=== PATIENT | male | born 1960 | race Caucasian/White ===

== ENCOUNTER 2019-01-21 19:08 | Emergency (ER) | payer OTHER ==
[~2019-01-21] VITALS: Ht 154.9 cm; Wt 75.0 kg
[2019-01-21 19:14] VITALS: BP 144/81; PULSE 79; RESP 19; Ht 154.9 cm; Wt 75.0 kg
--- NOTE | 2019-01-21 19:34 | ERD ---
ER Documentation Chief Complaint Chief Complaint bib ra from home for right sided inguinal hernia, HPI 58-year-old Bulgarian speaking gentleman. [employer] used. The patient has a history of right inguinal hernia. Prior stroke with some baseline cognitive deficits. The patient notes approximately 1 hour of right lower quadrant abdominal pain related to hernia that he cannot reduce. The pain is 8 out of 10. It is constant. He denies any nausea or vomiting, no fevers or chills. ROS All systems reviewed and are negative except as per history of present illness. Allergies Allergies: Coded Allergies: No Known Allergy (Unverified , 01/21/19) PMhx/Soc History of Surgery: No Anesthesia Reaction: No Hx Neurological Disorder: Yes (Hx of CVA) Hx Respiratory Disorders: No Hx Cardiac Disorders: Yes ([facility](2009), 7 Cardiac stent placement, HTN, ) Hx Psychiatric Problems: No Hx Miscellaneous Medical Probl: No FmHx Family History: No diabetes Physical Exam Vitals Vital Signs Date Temp Pulse Resp B/P (MAP) Pulse Ox O2 O2 Flow FiO2 Time Delivery Rate 01/21/19 98.8 79 19 144/81 100 19:14 (102) Physical Exam General: Uncomfortable Head: Normocephalic, atraumatic. Eyes: Pupils equally reactive, EOM intact ENT: Moist mucous membranes Neck: Supple, no lymphadenopathy Respiratory: Lungs clear bilaterally, no distress Cardiovascular: RRR, no murmurs, rubs, or gallops Abdominal: Soft, non-tender, non-distended, no peritoneal signs : Large right inguinal hernia, indirect that is firm but with direct pressure reducible. Repeat inspection reveals no persistent hernia. No pain. MSK: No edema, no unilateral swelling, 5/5 strength Neurologic: Alert and oriented, moving all extremities, normal speech, no focal weakness, no cerebellar signs Skin: No rash Psych: Normal mood Procedures/MDM PROCEDURES: Bedside inguinal hernia reduction. Using direct pressure to the inguinal hernia I was able to easily reduce the hernia without complication. The patient tolerated procedure well. Pain completely resolved. Repeat inspection reveals no persistent hernia. MEDICAL DECISION MAKING: Patient with evidence of a right inguinal hernia. Concern for possible incarceration, low concern for string elation. Using direct pressure I was able to reduce the hernia. The patient has no persistent signs or symptoms concerning for incarceration or strength elation. His abdominal exam is benign. No signs of infection at this time. The patient is complete resolution of symptoms and does not warrant CT imaging. Outpatient follow-up with general surgeon is likely necessary. Reduction techniques discussed. Compressive dressing applied CONSULTATION: None DISPOSITION PLAN: The patient does not have an identifiable emergent medical condition that warrants inpatient hospitalization at this time. The patient is deemed safe for discharge with outpatient follow-up. We discussed follow up with the patient's primary care doctor within 24 to 48 hours as needed. We also discussed return to the emergency room for worsening symptoms or worsening condition. Outpatient referral: General surgery Discharge Medications: None required Departure Diagnosis: Primary Impression: Right inguinal hernia Condition: Good Patient Instructions: Hernia (Inguinal, Ventral, Umbilical) Referrals: DOMINGO DIMAS MD Additional Instructions: Call your primary care doctor TOMORROW for an appointment during the next 1 WEEK.Tell the hand stoner that you were referred from this facility.See the doctor sooner or return here if your condition worsens before your appointment time. TIMOTHY PATTON MD Jan 21, 2019 19:34
== END 2019-01-21 20:13 | disposition home or self-care (01) ==
LOC: E/R 19:08
DX: K40.90 Unilateral inguinal hernia, without obstruction or gangrene, not specified as recurrent (principal); I10 Essential (primary) hypertension; I25.2 Old myocardial infarction; Z86.73 Personal history of transient ischemic attack (TIA), and cerebral infarction without residual deficits; Z98.61 Coronary angioplasty status
CPT/HCPCS: 99283